=== PATIENT | male | born 1980 | race Caucasian/White ===

== ENCOUNTER → 2018-09-13 | Emergency (ER) | payer MEDICAID, OTHER ==
[~2018-09-13] VITALS: Ht 182.9 cm; Wt 81.8 kg
[~2018-09-13] MED LIST: CEPH-572 PO; LIDOcaine 1% w/epiNEPHrine 1:200,000 30ml vial IM ONE; TETanus/Pertussis (Acell)/Diphther VAC/PF (Tdap-Adult) 0.5ml syringe IM ONE
[2018-09-13 11:51] VITALS: BP 113/78
== END | disposition home or self-care (01) ==
LOC: ER 11:36
DX: S01.511A Laceration without foreign body of lip, initial encounter (principal); Z56.0 Unemployment, unspecified; W01.198A Fall on same level from slipping, tripping and stumbling with subsequent striking against other object, initial encounter; Y93.89 Activity, other specified; Y92.89 Other specified places as the place of occurrence of the external cause; Y99.8 Other external cause status
CPT/HCPCS: 12013; 90471; 90715; 99283